=== PATIENT | male | born 1965 | race Caucasian/White ===

== ENCOUNTER 2019-02-21 14:10 | Inpatient (IN) | payer MEDICARE, MEDICAID ==
[~2019-02-21] VITALS: Ht 180.3 cm; Wt 73.5 kg
[2019-02-21] MEDS ORDERED: PRAV40TA3 PO ×2 (14:22→14:29)
[2019-02-21] MEDS ORDERED: OLAN5TAB3 PO ×2 (14:22→14:29)
[2019-02-21] MEDS ORDERED: ROSU20TA2 PO ×2 (14:22→14:29)
[2019-02-21] MEDS ORDERED: FLUO20CA36 PO ×2 (14:22→14:29)
[2019-02-21] MEDS ORDERED: ARIP15TA3 PO ×2 (14:22→14:29)
[2019-02-21] MEDS ORDERED: OLAN15TA3 PO ×2 (14:22→14:29)
[2019-02-21] MEDS ORDERED: TEMAZEPAM 7.5 MG CAPSULE PO PRN (15:30)
[2019-02-21] MEDS ORDERED: ACETAMINOPHEN 325 MG TABLET PO PRN (15:30)
[2019-02-21] MEDS ORDERED: MAGNESIUM HYDROXIDE 30 ML LIQUID UDC PO PRN (15:30)
[2019-02-21] MEDS ORDERED: MAG HYDROX/AL HYDROX/SIMETH 30 ML LIQUID UDC PO PRN (15:30)
[2019-02-21] MEDS ORDERED: TEMAZEPAM 15 MG CAPSULE PO PRN (16:00)
[2019-02-21] MEDS ORDERED: CLONAZEPAM 0.5 MG TABLET PO PRN (16:00)
[2019-02-21] MEDS: OLANZAPINE ZYDIS 5 MG TAB.RAPDIS PO SCH (17:16)
[2019-02-21] MEDS: FLUOXETINE HCL 20 MG CAPSULE PO SCH (17:16)
[2019-02-21 20:26] VITALS: BP 99/51
[2019-02-22 07:30] VITALS: BP 120/72
[2019-02-22] MEDS: OLANZAPINE ZYDIS 5 MG TAB.RAPDIS PO SCH ×2 (08:39→16:53)
[2019-02-22] MEDS: FLUOXETINE HCL 20 MG CAPSULE PO SCH (08:39)
[2019-02-22] MEDS: NICOTINE 7 MG/24HR PATCH TD SCH (08:42)
[2019-02-22] MEDS: ATORVASTATIN 10 MG TABLET PO SCH (21:00)
[2019-02-22 21:16] VITALS: BP 131/80
[2019-02-23 07:30] VITALS: BP 149/79
[2019-02-23] MEDS: OLANZAPINE ZYDIS 5 MG TAB.RAPDIS PO SCH ×2 (08:46→17:00)
[2019-02-23] MEDS: FLUOXETINE HCL 20 MG CAPSULE PO SCH (08:46)
[2019-02-23] MEDS: NICOTINE 7 MG/24HR PATCH TD SCH (08:49)
[2019-02-23 16:00] VITALS: BP 104/56
[2019-02-23] MEDS: ATORVASTATIN 10 MG TABLET PO SCH (20:22)
[2019-02-24] MEDS: OLANZAPINE ZYDIS 5 MG TAB.RAPDIS PO SCH ×2 (08:27→17:46)
[2019-02-24 08:30] VITALS: BP 132/61
[2019-02-24] MEDS: FLUOXETINE HCL 20 MG CAPSULE PO SCH (08:32)
[2019-02-24] MEDS: NICOTINE 7 MG/24HR PATCH TD SCH (08:32)
[2019-02-24 20:55] VITALS: BP 134/72
[2019-02-24] MEDS: ATORVASTATIN 10 MG TABLET PO SCH (21:10)
[2019-02-25 07:30] VITALS: BP 90/49
[2019-02-25] MEDS: NICOTINE 7 MG/24HR PATCH TD SCH (08:21)
[2019-02-25] MEDS: OLANZAPINE ZYDIS 5 MG TAB.RAPDIS PO SCH ×3 (08:22→17:00)
[2019-02-25] MEDS: FLUOXETINE HCL 20 MG CAPSULE PO SCH ×2 (08:28→09:00)
[2019-02-25 16:00] VITALS: BP 118/70
[2019-02-25] MEDS: ATORVASTATIN 10 MG TABLET PO SCH (20:14)
[2019-02-26 07:30] VITALS: BP 137/68
[2019-02-26 07:45] LABS: *BILIRUBIN,URIN NEGATIVE (NEGATIVE); *BLOOD, URINE NEGATIVE (NEGATIVE); *CLARITY,URINE CLEAR (CLEAR); *COLOR,URINE YELLOW (YELLOW); *KETONES,URINE NEGATIVE (NEGATIVE); *UROBILINOGEN,URINE 0.2 E.U./dl (NORMAL); LEUKOCYTE ESTERASE ,URINE NEGATIVE (NEGATIVE); NITRITE, URINE NEGATIVE (NEGATIVE); PH,URINE 8.5 (5.0-8.0); UGLUCOSE NEGATIVE (NEGATIVE)
[2019-02-26] MEDS: OLANZAPINE ZYDIS 5 MG TAB.RAPDIS PO SCH ×3 (09:00→16:56)
[2019-02-26] MEDS: FLUOXETINE HCL 20 MG CAPSULE PO SCH ×2 (09:00→13:45)
[2019-02-26] MEDS: NICOTINE 7 MG/24HR PATCH TD SCH (09:00)
[2019-02-26 16:00] VITALS: BP 117/72
[2019-02-26 20:05] VITALS: BP 115/61
[2019-02-26] MEDS: ATORVASTATIN 10 MG TABLET PO SCH (20:07)
[2019-02-27 07:30] VITALS: BP 90/51
[2019-02-27] MEDS: OLANZAPINE ZYDIS 5 MG TAB.RAPDIS PO SCH (08:47)
[2019-02-27] MEDS: FLUOXETINE HCL 20 MG CAPSULE PO SCH (08:47)
[2019-02-27] MEDS: NICOTINE 7 MG/24HR PATCH TD SCH (08:47)
[2019-02-27 15:16] VITALS: BP 97/49
[2019-02-27] MEDS: OLANZAPINE 2.5 MG TABLET PO SCH ×2 (16:13→16:23)
[2019-02-27] MEDS: ATORVASTATIN 10 MG TABLET PO SCH (20:08)
[2019-02-28 07:30] VITALS: BP 88/53
[2019-02-28] MEDS: OLANZAPINE 2.5 MG TABLET PO SCH ×2 (09:00→16:25)
[2019-02-28] MEDS: NICOTINE 7 MG/24HR PATCH TD SCH (09:00)
[2019-02-28] MEDS: FLUOXETINE HCL 20 MG CAPSULE PO SCH ×2 (09:00→15:40)
[2019-02-28 15:11] VITALS: BP 114/66
[2019-02-28] MEDS: ATORVASTATIN 10 MG TABLET PO SCH (20:29)
[2019-02-28 21:39] VITALS: BP 104/50
[2019-03-01 07:30] VITALS: BP 107/64
[2019-03-01] MEDS: NICOTINE 7 MG/24HR PATCH TD SCH (08:11)
[2019-03-01] MEDS: FLUOXETINE HCL 20 MG CAPSULE PO SCH (08:11)
[2019-03-01] MEDS: OLANZAPINE 2.5 MG TABLET PO SCH (08:11)
[2019-03-01] MEDS ORDERED: FLUOXETINE HCL 20 MG CAPSULE PO SCH (09:00)
[2019-03-01 16:00] VITALS: BP 117/58
[2019-03-01] MEDS: OLANZAPINE 5 MG TABLET PO SCH (16:44)
[2019-03-01] MEDS ORDERED: OLANZAPINE 2.5 MG TABLET PO SCH (17:00)
[2019-03-01 20:41] VITALS: BP 111/61
[2019-03-01] MEDS: ATORVASTATIN 10 MG TABLET PO SCH (21:00)
[2019-03-02 07:30] VITALS: BP 142/83
[2019-03-02] MEDS: FLUOXETINE HCL 20 MG CAPSULE PO SCH (08:46)
[2019-03-02] MEDS: OLANZAPINE 5 MG TABLET PO SCH (08:46)
[2019-03-02] MEDS: NICOTINE 7 MG/24HR PATCH TD SCH (08:47)
== END 2019-03-02 18:12 | DRG 885 ==
LOC: ER 14:14 → GPS 14:56
PROVIDERS: ADMIT Psychiatry & Neurology Psychiatry; ATTEND Registered Nurse
DX: F25.0 Schizoaffective disorder, bipolar type (principal); E78.5 Hyperlipidemia, unspecified; F41.9 Anxiety disorder, unspecified; Z59.0 Homelessness; F17.200 Nicotine dependence, unspecified, uncomplicated; Z91.19 Patient's noncompliance with other medical treatment and regimen; F10.20 Alcohol dependence, uncomplicated; Y90.9 Presence of alcohol in blood, level not specified; F12.10 Cannabis abuse, uncomplicated
CPT/HCPCS: 36415; 85025; 87086; A4663; A9150